=== PATIENT | female | born 1945 | race Hispanic/Latino ===

== ENCOUNTER → 2017-11-17 | Outpatient (CLI) | payer MEDICARE, OTHER ==
[~2017-11-17] MED LIST: ALLO100T PO; ASCO-157 PO; BIOTIN PO; CALC1TAB36 PO; CARV25TA77 PO; CHOL200026 PO; FENO160T16 PO; FISH1CAP50 PO; FOLI1TAB36 PO; HYDR-2132 PO; INSU100V12 SQ; LEVO50TA4 PO; LINA5TAB PO; LOSA100T29 PO; METF500T6 PO; PREG50 PO; PROP15DR28 OU; RIVA10TA PO; TORS5TAB12 PO
== END ==
LOC: RAH 15:58
PROVIDERS: ATTEND Internal Medicine
DX: M43.16 Spondylolisthesis, lumbar region (principal); M47.896 Other spondylosis, lumbar region
CPT/HCPCS: 72100

== ENCOUNTER 2017-12-03 10:21 | Emergency (ER) | payer MEDICARE, OTHER | END 2017-12-03 10:51 | disposition home or self-care (01) | LOC: EDH 10:21 | DX: M25.562 Pain in left knee (principal); K04.7 Periapical abscess without sinus; I10 Essential (primary) hypertension; E11.9 Type 2 diabetes mellitus without complications; Z79.4 Long term (current) use of insulin ==

== ENCOUNTER 2018-07-14 10:30 | Inpatient (IN) | payer MEDICARE ==
[~2018-07-14] VITALS: Ht 154.9 cm; Wt 63.0 kg
[~2018-07-14 10:30] MED LIST changes: -ASCO-157 PO; -BIOTIN PO; -CALC1TAB36 PO; -CHOL200026 PO; -FENO160T16 PO; -FISH1CAP50 PO; -HYDR-2132 PO; -INSU100V12 SQ; -LOSA100T29 PO; +METF-444 PO; -METF500T6 PO; -PREG50 PO; -PROP15DR28 OU; -RIVA10TA PO; -TORS5TAB12 PO
[2018-07-17 11:15] VITALS: BP 177/80
[2018-07-17 11:35] LABS: BASOPHILS % (AUTO) 0.9 % (0.0-5.0); HEMATOCRIT 36.5 % (36-48); LYMPHOCYTES % (AUTO) 28.7 % (21.0-51.0); MEAN CORPUSCULAR HEMOGLOBIN 28.4 pg (27.0-33.0); MEAN CORPUSCULAR HGB CONC 33.9 g/dL (32.0-36.0); MEAN CORPUSCULAR VOLUME 83.8 fL (79-99); MONOCYTES % (AUTO) 6.6 % (3.0-13.0); NEUTROPHILS % (AUTO) 60.8 % (40.0-77.0); PLATELET COUNT (AUTO) 243 K/uL (130-400); RED BLOOD CELL COUNT(AUTO) 4.36 MIL/uL (4.00-5.50); RED CELL DISTRIBUTION WIDTH 14.9 % (11.0-15.5); WHITE BLOOD COUNT (AUTO) 7.6 K/uL (4.8-10.8)
[2018-07-17 11:36] LABS: CREATININE 0.9 mg/dL (0.5-1.5); POTASSIUM 4.7 mmol/L (3.5-5.1)
[2018-07-17] MEDS ORDERED: TRAM-355 PO (12:22)
[2018-07-17] MEDS ORDERED: TORS5TAB12 PO (12:22)
[2018-07-17] MEDS ORDERED: GABA-529 PO (12:22)
[2018-07-17] MEDS ORDERED: VITAMIN D3 PO (12:22)
[2018-07-17] MEDS ORDERED: ASPI-1181 PO (12:22)
[2018-07-17] MEDS ORDERED: INSU100I21 SQ (12:22)
[2018-07-17] MEDS ORDERED: FENO160T16 PO (12:22)
[2018-07-19] VITALS (22 sets, daily range): BP systolic 97–177; BP diastolic 53–82
[2018-07-19] MEDS ORDERED: BACITRACIN 50,000 UNIT VIAL ONE (06:46)
[2018-07-19] MEDS ORDERED: DURAMORPH PF1 MG/ML 10ML AMP IV ONE (06:46)
[2018-07-19] MEDS ORDERED: BUPIVACAINE/EPI/PF 0.25% 30ML VIAL IJ ONE (06:46)
[2018-07-19] MEDS ORDERED: THROMBIN-JMI 20000 UNIT KIT TP ONE (06:46)
[2018-07-19] MEDS ORDERED: SODIUM CHLORIDE 0.9% 1000ML 1,000 ML IV ONE (07:02)
[2018-07-19] MEDS ORDERED: LIDOCAINE PF 2% 5ML ABBOJECT ONE (07:38)
[2018-07-19] MEDS ORDERED: MIDAZOLAM HCL 1 MG/ML 2ML VIAL ONE (07:40)
[2018-07-19] MEDS ORDERED: ONDANSETRON HCL 4 MG/2 ML VIAL ONE (07:40)
[2018-07-19] MEDS ORDERED: PROPOFOL 10 MG/ML 20ML VIAL IV ONE (07:40)
[2018-07-19] MEDS ORDERED: DEXAMETHASONE SOD PHOSPHATE 10MG/ML 1ML VIAL ONE (07:40)
[2018-07-19] MEDS ORDERED: ROCURONIUM 10MG/1ML SYR 10 MG/ML ML ONE (07:40)
[2018-07-19] MEDS ORDERED: NEOSTIGMINE 5MG/5ML SYR IV ONE (07:40)
[2018-07-19] MEDS ORDERED: FENTANYL CITRATE PF 50 MCG/1 ML 2ML VIAL ONE ×2 (07:41→11:37)
[2018-07-19] MEDS ORDERED: EPHEDRINE SULFATE 50 MG/ML AMPULE ONE (07:44)
[2018-07-19] MEDS ORDERED: GLYCOPYRROLATE 1 MG/5 ML SYRINGE ONE (07:45)
[2018-07-19] MEDS: CEFAZOLIN SODIUM 1 GM VIAL IVP SCH ×4 (08:00→23:55)
[2018-07-19] MEDS ORDERED: HYDROCODONE/ACETAMINOPHEN 5/325 MG TAB PO PRN (11:45)
[2018-07-19] MEDS ORDERED: MORPHINE SULFATE 2 MG/ML 1ML SYG IVP PRN (11:45)
[2018-07-19] MEDS ORDERED: SODIUM CHLORIDE 0.9% 10 ML VIAL IVP PRN (11:45)
[2018-07-19] MEDS ORDERED: PROMETHAZINE HCL 25 MG/ML 1ML AMPULE IM PRN (11:45)
[2018-07-19] MEDS ORDERED: LACTATED RINGERS 1000ML 1,000 ML IV SCH (11:45)
[2018-07-19] MEDS ORDERED: MORPHINE SULFATE 2 MG/ML 1ML SYG ONE (12:06)
[2018-07-19] MEDS ORDERED: TRAMADOL /APAP 37.5MG/325MG TAB PO PRN (13:00)
[2018-07-19] MEDS: DEXAMETHASONE SOD PHOSPHATE 4 MG/ML 1ML VIAL IVP SCH ×3 (13:03→23:54)
[2018-07-19] MEDS ORDERED: GLUCAGON 1MG KIT 1 MG ML IM PRN (13:45)
[2018-07-19] MEDS ORDERED: DEXTROSE 50%-WATER 50 ML DISP.SYRIN IV PRN (13:45)
[2018-07-19] MEDS: TORSEMIDE 20 MG TAB PO SCH (17:28)
[2018-07-19] MEDS: METFORMIN HCL 500 MG TABLET PO SCH (17:28)
[2018-07-19] MEDS: INSULIN GLARGINE 100 UNITS/ML 10 ML VIAL SQ SCH (17:34)
[2018-07-19] MEDS: INSULIN HUMULIN R 100 UNIT/ML 3ML SQ SCH ×2 (17:35→21:00)
[2018-07-19] MEDS: CARVEDILOL 25 MG TABLET PO SCH (20:23)
[2018-07-19] MEDS ORDERED: **HM** FENOFIBRATE 160MG PO SCH (21:00)
[2018-07-19] MEDS ORDERED: ASPIRIN 81 MG EC TAB PO SCH (21:00)
[2018-07-19] MEDS ORDERED: GABAPENTIN 100 MG CAPSULE PO SCH (21:00)
[2018-07-20 04:24] VITALS: BP 132/57
[2018-07-20] MEDS: DEXAMETHASONE SOD PHOSPHATE 4 MG/ML 1ML VIAL IVP SCH (05:42)
[2018-07-20] MEDS: INSULIN HUMULIN R 100 UNIT/ML 3ML SQ SCH ×2 (06:09→11:45)
[2018-07-20 07:56] VITALS: BP 155/74
[2018-07-20] MEDS: INSULIN GLARGINE 100 UNITS/ML 10 ML VIAL SQ SCH (08:41)
[2018-07-20 08:51] VITALS: BP 155/74
[2018-07-20] MEDS: TORSEMIDE 20 MG TAB PO SCH (08:51)
[2018-07-20] MEDS: CARVEDILOL 25 MG TABLET PO SCH (08:51)
[2018-07-20] MEDS: METFORMIN HCL 500 MG TABLET PO SCH (08:52)
[2018-07-20] MEDS ORDERED: LEVOTHYROXINE 50 MCG TABLET PO SCH (09:00)
[2018-07-20] MEDS ORDERED: LINAGLIPTIN 5 MG TABLET PO SCH (09:00)
[2018-07-20] MEDS ORDERED: **HM** VIT D3 25MCG PO SCH (09:00)
[2018-07-20] MEDS ORDERED: ALLOPURINOL 100 MG TABLET PO SCH (09:00)
[2018-07-20] MEDS ORDERED: FOLIC ACID/VITAMIN B COMP W-C 1 MG CAPSULE PO SCH (09:00)
== END 2018-07-20 11:42 | disposition home or self-care (01) | DRG 517 ==
LOC: EDSTATUS 10:30 → DAHIP 07-19 05:57 → 4AH 07-19 12:45
PROVIDERS: ADMIT Neurological Surgery; ATTEND Neurological Surgery
PROC: 01NB0ZZ Release Lumbar Nerve, Open Approach (ICD-10-PCS; principal; 2018-07-19 08:49)
PROC: 4A11X4G Monitoring of Peripheral Nervous Electrical Activity, Intraoperative, External Approach (ICD-10-PCS; 2018-07-19 08:49)
PROC: BR191ZZ Fluoroscopy of Lumbar Spine using Low Osmolar Contrast (ICD-10-PCS; 2018-07-19 08:49)
DX: M48.061 Spinal stenosis, lumbar region without neurogenic claudication (principal); E11.9 Type 2 diabetes mellitus without complications; I10 Essential (primary) hypertension; M21.372 Foot drop, left foot; M19.90 Unspecified osteoarthritis, unspecified site
CPT/HCPCS: 36415; 72020; 80048; 82948; 85025; A4218; A4344; J0690; J1100; J1815; J2001; J2250; J2274; J2405; J2704; J2710; J3010; J3490; J7030; J7120

== ENCOUNTER 2018-09-13 05:34 | Day surgery (SDC) | payer MEDICARE ==
[~2018-09-13] VITALS: Ht 157.5 cm; Wt 63.9 kg
[2018-09-13] VITALS (8 sets, daily range): BP systolic 103–185; BP diastolic 51–71
[~2018-09-13 05:34] MED LIST changes: +ASPI-1181 PO; +FENO160T16 PO; +GABA-529 PO; +INSU100I21 SQ; +TORS5TAB12 PO; +TRAM-355 PO; +VITAMIN D3 PO
[2018-09-13] MEDS ORDERED: SODIUM CHLORIDE 0.9% 1000ML 1,000 ML IV ONE (06:23)
[2018-09-13] MEDS ORDERED: AMLO5TAB7 PO (06:29)
[2018-09-13] MEDS ORDERED: DOCU100T PO (06:29)
[2018-09-13] MEDS ORDERED: LIDOCAINE HCL-MPF 2% 5ML VIAL ONE (06:33)
[2018-09-13] MEDS ORDERED: PROPOFOL 10 MG/ML 20ML VIAL IV ONE (06:33)
== END 2018-09-13 07:35 | disposition home or self-care (01) ==
LOC: DAH 05:34
PROVIDERS: ATTEND Internal Medicine
DX: K63.5 Polyp of colon (principal); D64.9 Anemia, unspecified; K57.30 Diverticulosis of large intestine without perforation or abscess without bleeding; K64.0 First degree hemorrhoids; Z86.010 Personal history of colon polyps; I10 Essential (primary) hypertension; E78.5 Hyperlipidemia, unspecified; E11.9 Type 2 diabetes mellitus without complications; Z79.4 Long term (current) use of insulin; E03.9 Hypothyroidism, unspecified; Z98.890 Other specified postprocedural states; Z90.49 Acquired absence of other specified parts of digestive tract; Z98.49 Cataract extraction status, unspecified eye; Z79.84 Long term (current) use of oral hypoglycemic drugs
CPT/HCPCS: 45380; 82948; 88305; 93005; A4606; J2704; J3490; J7030

== ENCOUNTER 2019-03-11 11:35 | Emergency (ER) | payer MEDICARE ==
[~2019-03-11 11:35] MED LIST changes: +AMLO5TAB9 PO; +DOCU100T PO; -GABA-529 PO; -LINA5TAB PO; -TRAM-355 PO; -VITAMIN D3 PO
== END 2019-03-11 12:19 | disposition home or self-care (01) ==
LOC: EDH 11:35
DX: M17.11 Unilateral primary osteoarthritis, right knee (principal); E11.9 Type 2 diabetes mellitus without complications; I10 Essential (primary) hypertension; E78.5 Hyperlipidemia, unspecified; Z79.4 Long term (current) use of insulin; Z90.49 Acquired absence of other specified parts of digestive tract; Z90.710 Acquired absence of both cervix and uterus; Z98.890 Other specified postprocedural states

== ENCOUNTER 2019-07-13 08:00 | Inpatient (IN) | payer MEDICARE ==
[~2019-07-13] VITALS: Ht 157.5 cm; Wt 67.1 kg
[~2019-07-13 08:00] MED LIST changes: -ASPI-1181 PO; -DOCU100T PO
[2019-07-31 14:45] VITALS: BP 147/65
[2019-07-31 15:35] LABS: BASOPHILS % (AUTO) 0.6 % (0.0-5.0); EOSINOPHILS % (AUTO) 2.6 % (0.0-8.0); HEMATOCRIT 39.3 % (36-48); LYMPHOCYTES % (AUTO) 23.9 % (21.0-51.0); MEAN CORPUSCULAR HEMOGLOBIN 28.4 pg (27.0-33.0); MEAN CORPUSCULAR HGB CONC 33.4 g/dL (32.0-36.0); MEAN CORPUSCULAR VOLUME 84.8 fL (79-99); MONOCYTES % (AUTO) 7.1 % (3.0-13.0); NEUTROPHILS % (AUTO) 65.8 % (40.0-77.0); NUCLEATED RED BLOOD CELLS 0.1 % (0.0-0.19); PLATELET COUNT (AUTO) 216 K/uL (130-400); RED BLOOD CELL COUNT(AUTO) 4.63 MIL/uL (4.00-5.50); RED CELL DISTRIBUTION WIDTH 14.2 % (11.0-15.5); WHITE BLOOD COUNT (AUTO) 8.1 K/uL (4.8-10.8)
[2019-07-31 15:44] LABS: POTASSIUM 4.5 mmol/L (3.5-5.1)
[2019-07-31 15:45] LABS: INR 1.02 (0.85-1.15); PROTHROMBIN TIME 10.7 SEC (9.6-11.6)
[2019-07-31] MEDS ORDERED: LINA5TAB PO (16:56)
[2019-08-01] VITALS (18 sets, daily range): BP systolic 123–155; BP diastolic 54–78
[2019-08-01] MEDS: CEFAZOLIN SODIUM 1 GM VIAL IVP SCH ×3 (10:30→23:44)
[2019-08-01 10:37] LABS: APPEARANCE,URINE Clear (CLEAR); BILIRUBIN,URINE Negative (NEGATIVE); COLOR,URINE Yellow (YELLOW); GLUCOSE, URINE (UA) 500 mg/dL (NEGATIVE); KETONES,URINE Negative (NEGATIVE); LEUKOCYTE ESTERASE ,URINE Small (NEGATIVE); NITRATE,URINE Negative (NEGATIVE); OCCULT BLOOD,URINE Negative (NEGATIVE); PH,URINE 6.5 (5.0-8.0); PROTEIN,URINE Negative (NEGATIVE); UROBILINOGEN,URINE 0.2 mg/dL (0.2-1.0)
[2019-08-01 10:51] LABS: BACTERIA,URINE Rare /HPF (None Seen); RBC,URINE 0-1 /HPF (0-1); SQUAMOUS EPITHELIAL CELL,UR Rare /HPF (0-2)
[2019-08-01] MEDS ORDERED: SODIUM CHLORIDE 0.9% 1000ML 1,000 ML IV ONE (10:51)
[2019-08-01] MEDS ORDERED: ACETAMINOPHEN EXTRA STRENGTH 500 MG TABLET ONE (11:15)
[2019-08-01] MEDS ORDERED: KETOROLAC TROMETHAMINE 15MG/ML ONE (11:15)
[2019-08-01] MEDS ORDERED: CELECOXIB 200 MG CAP ONE (11:15)
[2019-08-01] MEDS ORDERED: OXYCODONE HCL 10 MG TAB.SR.12H PO ONE (11:16)
--- NOTE | 2019-08-01 11:32 | NUR ---
POTENTIAL FOR INFECTION: SHAVED RIGHT LEG / KNEE PER GLORIA TAM, FOLLOWED BY WIPING WITH CORBY: 2% CHLORHEXIDINE GLUCONATE CLOTH PATIENTS PRE-OP SKIN PREP.
[2019-08-01] MEDS ORDERED: PROPOFOL 10 MG/ML 20ML VIAL IV ONE (11:36)
[2019-08-01] MEDS ORDERED: SUCCINYLCHOLINE 200MG/10ML SYR ONE (11:36)
[2019-08-01] MEDS ORDERED: DEXAMETHASONE SOD PHOSPHATE 10MG/ML 1ML VIAL ONE ×2 (11:36→11:43)
[2019-08-01] MEDS ORDERED: LIDOCAINE PF 2% 5ML ABBOJECT ONE (11:36)
[2019-08-01] MEDS ORDERED: ONDANSETRON HCL 4 MG/2 ML VIAL ONE (11:37)
[2019-08-01] MEDS ORDERED: MIDAZOLAM HCL 1 MG/ML 2ML VIAL ONE (11:37)
[2019-08-01] MEDS ORDERED: ROCURONIUM 10MG/1ML SYR 10 MG/ML ML ONE ×2 (11:37→16:29)
[2019-08-01] MEDS ORDERED: GLYCOPYRROLATE 1 MG/5 ML SYRINGE ONE (11:37)
[2019-08-01] MEDS ORDERED: NEOSTIGMINE 5MG/5ML SYR IV ONE (11:37)
[2019-08-01] MEDS ORDERED: FENTANYL CITRATE PF 50 MCG/1 ML 2ML VIAL ONE (11:41)
[2019-08-01] MEDS ORDERED: ROPIVACAINE 0.5% 5MG/ML 30ML IJ ONE (11:45)
[2019-08-01] MEDS ORDERED: CEFAZOLIN SODIUM 1 GM VIAL ONE (12:59)
[2019-08-01] MEDS ORDERED: TRANEXAMIC ACID 1000MG/10ML IV ONE ×2 (12:59)
[2019-08-01] MEDS ORDERED: EPHEDRINE SULFATE 50 MG/ML AMPULE ONE (17:23)
[2019-08-01] MEDS: SODIUM CHLORIDE 0.9% 1000ML 1,000 ML IV SCH (18:07)
[2019-08-01] MEDS ORDERED: POTASSIUM CHLORIDE 10% ELIXIR 20 MEQ/15 ML UDCUP PO PRN (18:15)
[2019-08-01] MEDS ORDERED: POTASSIUM CHLORIDE 20 MEQ ERTAB PO PRN (18:15)
[2019-08-01] MEDS ORDERED: TRAMADOL HCL 50 MG TABLET PO PRN (18:15)
[2019-08-01] MEDS ORDERED: LIDOCAINE HCL-MPF 1% 2ML VIAL IV PRN (18:15)
[2019-08-01] MEDS: ACETAMINOPHEN EXTRA STRENGTH 500 MG TABLET PO SCH (18:15)
[2019-08-01] MEDS ORDERED: DiphenhydrAMINE HCL 50 MG/ML VIAL IVP PRN (18:15)
[2019-08-01] MEDS ORDERED: FERROUS FUMARATE 324 MG TABLET PO PRN (18:15)
[2019-08-01] MEDS ORDERED: POTASSIUM CHLORIDE 20MEQ/100ML 100 ML IV PRN (18:15)
[2019-08-01] MEDS ORDERED: TEMAZEPAM 15 MG CAPSULE PO PRN (18:15)
[2019-08-01] MEDS ORDERED: CALCIUM CARBONATE 500 MG TABLET PO PRN (18:15)
[2019-08-01] MEDS ORDERED: OXYCODONE HCL 5 MG TAB PO PRN (18:15)
[2019-08-01] MEDS ORDERED: ONDANSETRON HCL 4 MG/2 ML VIAL IVP PRN (18:15)
[2019-08-01] MEDS ORDERED: METOCLOPRAMIDE 10 MG/2 ML VIAL ONE (19:18)
[2019-08-01] MEDS: **HM**(Fenofibrate 160 MG PO SCH (21:00)
[2019-08-01] MEDS: CELECOXIB 200 MG CAP PO SCH (22:12)
[2019-08-01] MEDS: ASPIRIN 81MG TAB.CHEW PO SCH (22:12)
[2019-08-01] MEDS: PREGABALIN 25 MG CAP PO SCH (22:13)
[2019-08-01] MEDS: CARVEDILOL 25 MG TABLET PO SCH (22:13)
[2019-08-01] MEDS: INSULIN HUMULIN R 100 UNIT/ML 3ML SQ SCH (22:25)
[2019-08-02] VITALS (7 sets, daily range): BP systolic 114–154; BP diastolic 49–72
[2019-08-02] MEDS: SODIUM CHLORIDE 0.9% 1000ML 1,000 ML IV SCH ×2 (03:24→14:07)
[2019-08-02] MEDS: ACETAMINOPHEN EXTRA STRENGTH 500 MG TABLET PO SCH ×3 (03:25→17:54)
[2019-08-02 05:12] LABS: HEMATOCRIT 31.6 % (36-48); MEAN CORPUSCULAR HGB CONC 34.5 g/dL (32.0-36.0); MEAN CORPUSCULAR VOLUME 84.2 fL (79-99); NUCLEATED RED BLOOD CELLS 0.1 % (0.0-0.19); PLATELET COUNT (AUTO) 175 K/uL (130-400); RED BLOOD CELL COUNT(AUTO) 3.76 MIL/uL (4.00-5.50); RED CELL DISTRIBUTION WIDTH 14.2 % (11.0-15.5); WHITE BLOOD COUNT (AUTO) 9.9 K/uL (4.8-10.8)
[2019-08-02 05:35] LABS: CREATININE 0.8 mg/dL (0.5-1.5); POTASSIUM 4.9 mmol/L (3.5-5.1)
[2019-08-02] MEDS: CEFAZOLIN SODIUM 1 GM VIAL IVP SCH (06:14)
[2019-08-02] MEDS: LEVOTHYROXINE 50 MCG TABLET PO SCH (06:15)
[2019-08-02] MEDS: INSULIN HUMULIN R 100 UNIT/ML 3ML SQ SCH ×4 (06:30→21:46)
[2019-08-02] MEDS ORDERED: TORSEMIDE 5 MG PO SCH (08:00)
[2019-08-02] MEDS: PREGABALIN 25 MG CAP PO SCH ×2 (08:45→21:38)
[2019-08-02] MEDS: LINAGLIPTIN 5 MG TABLET PO SCH (08:45)
[2019-08-02] MEDS: FAMOTIDINE 20MG TAB 20 MG TAB PO SCH (08:45)
[2019-08-02] MEDS: ALLOPURINOL 100 MG TABLET PO SCH (08:46)
[2019-08-02] MEDS: AMLODIPINE BESYLATE 5 MG TAB PO SCH (08:46)
[2019-08-02] MEDS: CELECOXIB 200 MG CAP PO SCH ×2 (08:46→21:38)
[2019-08-02] MEDS: CARVEDILOL 25 MG TABLET PO SCH ×2 (08:47→21:37)
[2019-08-02] MEDS: METFORMIN HCL 500 MG TABLET PO SCH ×2 (08:48→17:54)
[2019-08-02] MEDS: ASPIRIN 81MG TAB.CHEW PO SCH ×2 (08:48→21:37)
[2019-08-02] MEDS: POLYETHYLENE GLYCOL 3350 17 GM POWD.PACK PO SCH (08:49)
[2019-08-02] MEDS: INSULIN GLARGINE 100 UNITS/ML 10 ML VIAL SQ SCH ×2 (08:52→17:56)
[2019-08-02] MEDS: TORSEMIDE 20 MG TAB PO SCH ×2 (08:59→17:54)
[2019-08-02] MEDS: BIOT PO SCH (09:00)
[2019-08-02] MEDS: ZINC PO SCH (09:00)
[2019-08-02] MEDS: [UNRECOGNIZED DRUG - OTHER] PO SCH (09:00)
[2019-08-02] MEDS: VIT B CPLX PO SCH (09:00)
[2019-08-02] MEDS: ZN OX PO SCH (09:00)
--- NOTE | 2019-08-02 11:53 | NUR ---
DR. FAIRBANKS AWARE OF PT'S INABILITY TO VOID BLADDER SCAN CLOSE TO 700 CC BLADDER IS DISTENDED , HOWEVER DOES NOT COMPLAIN OF PAIN NOR TENDERNESS. DR. FAIRBANKS AWARE STATED TO WAIT 2-3 HRS BEFORE TYLER CATHETER AND CALL FIELD ENGINEER , SINCE PATIENT STILL VERY NUMB TO HER RIGHT LOWER LEG
--- NOTE | 2019-08-02 13:30 | NUR ---
PT VOIDED 450 CC OF CLEAR URINE
--- NOTE | 2019-08-02 16:55 | NUR ---
INITIAL, NEW ORDER FOR SNF/ REFERRAL/ ACCEPTANED MET W PATIENT AT BEDSIDE EARLIER THIS AFTERNOON PT IS AAOX3, LIVES W SPOUSE JARED, HAS DME, HOME IS SAFE AND ACCESSIBLE WAS PREVIOUSLY INDP OF ADLS, USED A CANE SOMETIMES AND IS S/P TKA #2. STATES GOT NEW INFO ABOUT HER 'S HEALTH THIS AM; NOW WANTS TO GO TO A SNF TO NOT BE A BURDEN OR WORRY TO HIM. WAS AT [facility]ST TIME AND WANTS TO GO BACK. JULIA SIGNED. CALL TO DR. FAIRBANKS, REFERRAL REC'D AND SENT, EVAL COMPLETED AND PT ACCEPTED, CHART TAGGED, PRIMARY RN AWARE Addendum: 08/02/19 at 2158 by SAM QUEZADA RN Amended: Links added.
[2019-08-02] MEDS: OXYCODONE HCL 5 MG TAB PO PRN (18:52)
[2019-08-02] MEDS: **HM**(Fenofibrate 160 MG PO SCH (21:00)
[2019-08-02] MEDS: KETOROLAC TROMETHAMINE 15MG/ML IV PRN (21:38)
[2019-08-03] VITALS (7 sets, daily range): BP systolic 116–149; BP diastolic 54–68
[2019-08-03] MEDS: ACETAMINOPHEN EXTRA STRENGTH 500 MG TABLET PO SCH ×3 (01:18→18:37)
[2019-08-03] MEDS: LEVOTHYROXINE 50 MCG TABLET PO SCH (05:35)
[2019-08-03] MEDS: OXYCODONE HCL 5 MG TAB PO PRN ×3 (05:38→20:18)
[2019-08-03] MEDS: INSULIN HUMULIN R 100 UNIT/ML 3ML SQ SCH ×4 (05:40→20:14)
[2019-08-03] MEDS: INSULIN GLARGINE 100 UNITS/ML 10 ML VIAL SQ SCH ×2 (08:00→16:23)
[2019-08-03] MEDS ORDERED: ASPI-1005 PO (08:38)
[2019-08-03] MEDS ORDERED: HYDR-4457 PO (08:38)
[2019-08-03] MEDS: ZN OX PO SCH (09:00)
[2019-08-03] MEDS: BIOT PO SCH (09:00)
[2019-08-03] MEDS: AMLODIPINE BESYLATE 5 MG TAB PO SCH (09:00)
[2019-08-03] MEDS: ZINC PO SCH (09:00)
[2019-08-03] MEDS: VIT B CPLX PO SCH (09:00)
[2019-08-03] MEDS: CARVEDILOL 25 MG TABLET PO SCH ×2 (09:00→19:55)
[2019-08-03] MEDS: [UNRECOGNIZED DRUG - OTHER] PO SCH (09:00)
[2019-08-03] MEDS: METFORMIN HCL 500 MG TABLET PO SCH ×2 (09:31→16:20)
[2019-08-03] MEDS: KETOROLAC TROMETHAMINE 15MG/ML IV PRN (09:31)
[2019-08-03] MEDS: ALLOPURINOL 100 MG TABLET PO SCH (09:32)
[2019-08-03] MEDS: FAMOTIDINE 20MG TAB 20 MG TAB PO SCH (09:33)
[2019-08-03] MEDS: TORSEMIDE 20 MG TAB PO SCH ×2 (09:33→16:20)
[2019-08-03] MEDS: ASPIRIN 81MG TAB.CHEW PO SCH ×2 (09:33→19:55)
[2019-08-03] MEDS: LINAGLIPTIN 5 MG TABLET PO SCH (09:33)
[2019-08-03] MEDS: PREGABALIN 25 MG CAP PO SCH ×2 (09:33→19:55)
[2019-08-03] MEDS: CELECOXIB 200 MG CAP PO SCH ×2 (09:33→19:54)
[2019-08-03] MEDS: POLYETHYLENE GLYCOL 3350 17 GM POWD.PACK PO SCH (09:34)
--- NOTE | 2019-08-03 10:00 | NUR ---
cm note spoke to natan with [facility] and states pt needs accepted for tuesday, as long as pt has been here 3 midnights. updated primary nurse.
[2019-08-03] MEDS: **HM**(Fenofibrate 160 MG PO SCH (19:56)
[2019-08-04] MEDS: ACETAMINOPHEN EXTRA STRENGTH 500 MG TABLET PO SCH ×2 (02:53→11:16)
[2019-08-04 03:30] VITALS: BP 139/65
[2019-08-04] MEDS: LEVOTHYROXINE 50 MCG TABLET PO SCH (04:57)
[2019-08-04] MEDS: INSULIN HUMULIN R 100 UNIT/ML 3ML SQ SCH ×2 (06:15→11:44)
[2019-08-04 07:53] VITALS: BP 128/57
[2019-08-04] MEDS: INSULIN GLARGINE 100 UNITS/ML 10 ML VIAL SQ SCH (08:00)
[2019-08-04] MEDS: OXYCODONE HCL 5 MG TAB PO PRN (08:09)
[2019-08-04] MEDS: [UNRECOGNIZED DRUG - OTHER] PO SCH (09:00)
[2019-08-04] MEDS: CARVEDILOL 25 MG TABLET PO SCH (09:00)
[2019-08-04] MEDS: ZN OX PO SCH (09:00)
[2019-08-04] MEDS: AMLODIPINE BESYLATE 5 MG TAB PO SCH (09:00)
[2019-08-04] MEDS: BIOT PO SCH (09:00)
[2019-08-04] MEDS: ZINC PO SCH (09:00)
[2019-08-04] MEDS: VIT B CPLX PO SCH (09:00)
[2019-08-04] MEDS: FAMOTIDINE 20MG TAB 20 MG TAB PO SCH (11:16)
[2019-08-04] MEDS: CELECOXIB 200 MG CAP PO SCH (11:16)
[2019-08-04] MEDS: LINAGLIPTIN 5 MG TABLET PO SCH (11:16)
[2019-08-04] MEDS: METFORMIN HCL 500 MG TABLET PO SCH (11:16)
[2019-08-04] MEDS: ASPIRIN 81MG TAB.CHEW PO SCH (11:17)
[2019-08-04] MEDS: ALLOPURINOL 100 MG TABLET PO SCH (11:17)
[2019-08-04] MEDS: PREGABALIN 25 MG CAP PO SCH (11:17)
[2019-08-04] MEDS: TORSEMIDE 20 MG TAB PO SCH (11:17)
[2019-08-04] MEDS: POLYETHYLENE GLYCOL 3350 17 GM POWD.PACK PO SCH (11:18)
[2019-08-04] MEDS: KETOROLAC TROMETHAMINE 15MG/ML IV PRN (11:25)
[2019-08-04 11:38] VITALS: BP 122/55
--- NOTE | 2019-08-04 12:25 | NUR ---
REPORT TO [facility] NURSE REPORT GIVEN TO SANTI HERNANDEZ OF [facility] [phone]. NURSE INFORMED PATIENT IS READY TO BE PICKED UP BY [facility]. Addendum: 08/04/19 at 2100 by AZALIA SMITH RN RN FAXED MEDICATION RECONCILIATION AND DR. FAIRBANKS DISCHARGE ORDERS TO [facility] [phone]. ORIGINAL RX (ASA, NORCO) PLACED IN PATIENT CHART COPY FOLDER. INFORMED SANTI HERNANDEZ AT TIME OF DISCHARGE NO LONGER ORDERED BY DR. FAIRBANKS. RIGHT KNEE DRESSING CHANGED PERFORMED PRIOR TO DISCHARGES. RIGHT KNEE INCISION APPROXIMATED AND ASYMPTOMATIC, CLEANSED WITH BETADINE, COVERED WITH GAUZE, AND SECURED WITH MEDIPORE TAPE. REMOVED 20G IV FROM LEFT FA, CATHETER TIP INTACT. Addendum: 08/04/19 at 2101 by AZALIA SMITH RN RN Amended: Links added.
[2019-08-04] MEDS ORDERED: BISACODYL 10 MG SUPP.RECT RC PRN (18:15)
== END 2019-08-04 13:00 | DRG 470 ==
LOC: DAHIP 08-01 09:56 → 4AH 08-01 19:58
PROVIDERS: ADMIT Orthopaedic Surgery; ATTEND Orthopaedic Surgery
PROC: 3E0T3BZ Introduction of Anesthetic Agent into Peripheral Nerves and Plexi, Percutaneous Approach (ICD-10-PCS; 2019-08-01)
PROC: 0SRC0J9 Replacement of Right Knee Joint with Synthetic Substitute, Cemented, Open Approach (ICD-10-PCS; principal; 2019-08-01 15:30)
DX: M17.11 Unilateral primary osteoarthritis, right knee (principal); E78.00 Pure hypercholesterolemia, unspecified; E11.9 Type 2 diabetes mellitus without complications; M81.0 Age-related osteoporosis without current pathological fracture; E03.9 Hypothyroidism, unspecified; I11.9 Hypertensive heart disease without heart failure; R33.9 Retention of urine, unspecified; G89.29 Other chronic pain; Z96.652 Presence of left artificial knee joint; Z90.49 Acquired absence of other specified parts of digestive tract; Z90.710 Acquired absence of both cervix and uterus; Z79.899 Other long term (current) drug therapy; Z99.89 Dependence on other enabling machines and devices
CPT/HCPCS: 36415; 80048; 81001; 82948; 85025; 85027; 85610; 87641; 88304; 88311; 96374; 97039; A4344; G0378; J0330; J0690; J1100; J1815; J1885; J2001; J2250; J2405; J2704; J2710; J2765; J2795; J3010; J3490; J7030; J7120

== ENCOUNTER → 2019-10-24 | Outpatient (CLI) | payer MEDICARE ==
[~2019-10-24] MED LIST changes: +ASPI-1005 PO; +HYDR-4457 PO; +LINA5TAB PO
== END | disposition home or self-care (01) ==
LOC: RAH 10:17
PROVIDERS: ATTEND Family Medicine
DX: Z12.31 Encounter for screening mammogram for malignant neoplasm of breast (principal)
CPT/HCPCS: 77067

== ENCOUNTER 2019-12-02 23:39 | Emergency (ER) | payer MEDICARE ==
[2019-12-03] MEDS ORDERED: MORPHINE SULFATE 2 MG/ML 1ML SYG ONE (00:23)
[2019-12-03 00:25] LABS: BASOPHILS % (AUTO) 0.6 % (0.0-5.0); EOSINOPHILS % (AUTO) 4.2 % (0.0-8.0); HEMATOCRIT 34.4 % (36-48); LYMPHOCYTES % (AUTO) 19.1 % (21.0-51.0); MEAN CORPUSCULAR HEMOGLOBIN 25.8 pg (27.0-33.0); MEAN CORPUSCULAR HGB CONC 31.7 g/dL (32.0-36.0); MEAN CORPUSCULAR VOLUME 81.5 fL (79-99); MONOCYTES % (AUTO) 10.5 % (3.0-13.0); NEUTROPHILS % (AUTO) 65.2 % (40.0-77.0); PLATELET COUNT (AUTO) 254 K/uL (130-400); RED BLOOD CELL COUNT(AUTO) 4.22 MIL/uL (4.00-5.50); RED CELL DISTRIBUTION WIDTH 15.5 % (11.0-15.5); WHITE BLOOD COUNT (AUTO) 7.2 K/uL (4.8-10.8)
[2019-12-03 00:30] LABS: POTASSIUM 4.7 mmol/L (3.5-5.1)
== END 2019-12-03 01:46 | disposition home or self-care (01) ==
LOC: EDH 23:39
DX: M25.571 Pain in right ankle and joints of right foot (principal); R60.0 Localized edema; I10 Essential (primary) hypertension; E78.5 Hyperlipidemia, unspecified; E11.9 Type 2 diabetes mellitus without complications; Z79.4 Long term (current) use of insulin; Z87.891 Personal history of nicotine dependence
CPT/HCPCS: 36415; 80048; 85025; 93971; 96372

== ENCOUNTER → 2020-01-07 | Outpatient (CLI) | payer MEDICARE, OTHER | END | disposition home or self-care (01) | LOC: SHCH 12:40 | PROVIDERS: ATTEND Internal Medicine Cardiovascular Disease | DX: I51.7 Cardiomegaly (principal); R60.0 Localized edema | CPT/HCPCS: 93306; 93356 ==

== ENCOUNTER → 2020-01-22 | Outpatient (CLI) | payer MEDICARE | END | disposition home or self-care (01) | LOC: SHCH 10:58 | PROVIDERS: ATTEND Internal Medicine Cardiovascular Disease | DX: I87.2 Venous insufficiency (chronic) (peripheral) (principal); K21.9 Gastro-esophageal reflux disease without esophagitis | CPT/HCPCS: 93970 ==

== ENCOUNTER 2020-06-29 09:26 | Inpatient (IN) | payer MEDICARE ==
[~2020-06-29] VITALS: Ht 157.5 cm; Wt 66.1 kg
[2020-06-29] MEDS ORDERED: DEXTROSE 50%-WATER 50 ML DISP.SYRIN IV ONE ×3 (09:36→13:40)
[2020-06-29 10:22] LABS: BASOPHILS % (AUTO) 0.3 % (0.0-5.0); EOSINOPHILS % (AUTO) 0.7 % (0.0-8.0); HEMATOCRIT 37.3 % (36-48); LYMPHOCYTES % (AUTO) 19.6 % (21.0-51.0); MEAN CORPUSCULAR HEMOGLOBIN 27.5 pg (27.0-33.0); MEAN CORPUSCULAR HGB CONC 31.9 g/dL (32.0-36.0); MEAN CORPUSCULAR VOLUME 86.3 fL (79-99); MONOCYTES % (AUTO) 4.3 % (3.0-13.0); NEUTROPHILS % (AUTO) 74.8 % (40.0-77.0); PLATELET COUNT (AUTO) 254 K/uL (130-400); RED BLOOD CELL COUNT(AUTO) 4.32 MIL/uL (4.00-5.50); RED CELL DISTRIBUTION WIDTH 14.6 % (11.0-15.5); WHITE BLOOD COUNT (AUTO) 5.8 K/uL (4.8-10.8)
[2020-06-29 10:23] LABS: APPEARANCE,URINE Clear (CLEAR); BILIRUBIN,URINE Negative (NEGATIVE); COLOR,URINE Yellow (YELLOW); GLUCOSE, URINE (UA) Negative (NEGATIVE); KETONES,URINE Negative (NEGATIVE); LEUKOCYTE ESTERASE ,URINE Negative (NEGATIVE); NITRATE,URINE Negative (NEGATIVE); OCCULT BLOOD,URINE Negative (NEGATIVE); PROTEIN,URINE Negative (NEGATIVE); UROBILINOGEN,URINE 0.2 mg/dL (0.2-1.0)
[2020-06-29 10:35] LABS: CREATININE 1.5 mg/dL (0.5-1.5); POTASSIUM 4.7 mmol/L (3.5-5.1)
[2020-06-29 10:36] LABS: INR 1.06 (0.85-1.15); PARTIAL THROMBOPLASTIN TIME 30.3 SEC (26.3-35.5); PROTHROMBIN TIME 11.4 SEC (9.6-11.6)
[2020-06-29 10:40] LABS: ALBUMIN 3.8 g/dL (3.5-5.0); BILIRUBIN,TOTAL 0.3 mg/dL (0.2-1.0); TOTAL PROTEIN, SERUM 7.4 g/dL (6.0-8.3)
[2020-06-29] MEDS ORDERED: ZOSYN 3.375GM+NS 50ML 50 ML IV ONE (10:58)
[2020-06-29] MEDS ORDERED: DOPAMINE 800MG/D5 250ML 250 ML IV ONE (11:01)
[2020-06-29] MEDS ORDERED: LIDOCAINE HCL-MPF 1% 2ML VIAL IV PRN (12:30)
[2020-06-29] MEDS ORDERED: HYDRALAZINE HCL 20 MG/ML VIAL IV PRN (12:30)
[2020-06-29] MEDS ORDERED: POTASSIUM CHLORIDE 20MEQ/100ML 100 ML IV PRN (12:30)
[2020-06-29 12:38] LABS: HEMOGLOBIN A1C 7.6 % (4.0-6.0)
[2020-06-29] MEDS ORDERED: COMPOUND IV MISC 1 EACH IVSOLN MISC PRN (12:45)
[2020-06-29] MEDS ORDERED: DEXTROSE 5%-WATER 1,000 ML IV ONE (13:41)
[2020-06-29] MEDS ORDERED: DEXTROSE 5%-LACTATED RINGERS 1,000 ML IV SCH (14:00)
[2020-06-29] MEDS ORDERED: ACYCLOVIR SODIUM 500 MG VIAL IV SCH (14:00)
[2020-06-29] MEDS ORDERED: DEXTROSE 5 % AND 0.9 % NACL 1,000 ML IV ONE (14:56)
[2020-06-29 15:34] LABS: THYROID STIMULATING HORMONE 1.09 uIU/mL (0.36-3.74)
[2020-06-29] MEDS ORDERED: NOREPINEPHRINE 4MG/NS 250ML 250 ML IV SCH (15:45)
[2020-06-30 05:15] LABS: BASOPHILS % (AUTO) 0.3 % (0.0-5.0); EOSINOPHILS % (AUTO) 1.4 % (0.0-8.0); HEMATOCRIT 31.9 % (36-48); LYMPHOCYTES % (AUTO) 17.9 % (21.0-51.0); MEAN CORPUSCULAR HEMOGLOBIN 27.8 pg (27.0-33.0); MEAN CORPUSCULAR HGB CONC 32.3 g/dL (32.0-36.0); MEAN CORPUSCULAR VOLUME 86.2 fL (79-99); MONOCYTES % (AUTO) 7.3 % (3.0-13.0); NEUTROPHILS % (AUTO) 72.8 % (40.0-77.0); PLATELET COUNT (AUTO) 236 K/uL (130-400); RED CELL DISTRIBUTION WIDTH 14.8 % (11.0-15.5); WHITE BLOOD COUNT (AUTO) 7.3 K/uL (4.8-10.8)
[2020-06-30 05:24] LABS: POTASSIUM 5.1 mmol/L (3.5-5.1)
[2020-06-30] MEDS: ENOXAPARIN SODIUM 40 MG/0.4 ML SYRINGE SQ SCH (09:00)
[2020-06-30] MEDS ORDERED: ENOXAPARIN SODIUM 40 MG/0.4 ML SYRINGE SQ ONE (09:26)
[2020-06-30] MEDS: INSULIN HUMULIN R 100 UNIT/ML 3ML SQ SCH ×3 (11:30→20:37)
[2020-06-30] MEDS: SODIUM CHLORIDE 0.9% IV SCH ×2 (14:00→22:50)
[2020-06-30] MEDS: ACYCLOVIR SODIUM IV SCH ×2 (14:00→22:50)
[2020-06-30 15:00] VITALS: BP 168/75
--- NOTE | 2020-06-30 15:28 | NUR ---
RECEIVED CALL FROM PT.'S DAUGHTER, ETHAN PUGH , PER HERSELF; UPDATED ON PT.'S STATUS ( REQUESTED) AND QUESTIONS ANSWERED, VERBALIZED UNDERSTANDING.
--- NOTE | 2020-06-30 16:54 | NUR ---
cm note spoke to pt's spouse, pt resides with spouse, ambulates with cane and walker mostly, but has w/c, able to do own personal care.adls. but spouse states he has a family member that will be staying with them after pt gets out of the hospital to help them temporarily while she recovers. dc plan is back home. states no dc needs. Addendum: 06/30/20 at 1706 by JITENDRA MCGREGOR CM Amended: Links added.
--- NOTE | 2020-06-30 17:00 | NUR ---
RECEIVED CALL FROM PT.'S SON, JARED PUGH III, INQUIRED RE:PT.'S STATUS, QUESTIONS ANSWERED AND VERBALIZED UNDERSTANDING. JARED LEXY III STATES ETHAN PUGH IS PT.'S [id number].
--- NOTE | 2020-06-30 17:09 | NUR ---
RECEIVED CALL FROM JARED PUGH PT.'S SPOUSE. QUESTIONS ANSWERED AND VERBALIZED UNDERSTANDING.
[2020-06-30] MEDS ORDERED: VANCOMYCIN PROTOCOL PER PHARMACY IV SCH (17:45)
[2020-06-30] MEDS: CEFTRIAXONE SODIUM 1 GM IVP SCH (18:38)
[2020-06-30] MEDS ORDERED: COMPOUND IV REFRIGERATED 1 EACH IVSOLN MISC PRN (18:45)
[2020-06-30 20:00] VITALS: BP 155/79
[2020-06-30] MEDS ORDERED: VANCOMYCIN HCL 1 GM VIAL IV SCH (20:00)
[2020-06-30] MEDS: VANCOMYCIN 1GM+NS 250ML IV SCH (21:37)
[2020-06-30 23:34] VITALS: BP 148/74
[2020-07-01 03:56] VITALS: BP 151/79
[2020-07-01] MEDS: SODIUM CHLORIDE 0.9% IV SCH ×3 (04:45→20:32)
[2020-07-01] MEDS: ACYCLOVIR SODIUM IV SCH ×3 (04:45→20:32)
[2020-07-01] MEDS: INSULIN HUMULIN R 100 UNIT/ML 3ML SQ SCH ×4 (05:57→20:33)
[2020-07-01] MEDS: CEFTRIAXONE SODIUM 1 GM IVP SCH (08:14)
[2020-07-01] MEDS: ENOXAPARIN SODIUM 40 MG/0.4 ML SYRINGE SQ SCH (08:14)
--- NOTE | 2020-07-01 09:00 | NUR ---
DR. ALFONSO HERE , AND SPOKE WITH PT AND FAMILY MEMBER , DAUGHTER IN LAW, REGARDING HER DIABETIC PLAN OF CARE AND MEDICATIONS AND MONITORING APPT. IN HIS OFFICE AFTER DISCHARGE .
[2020-07-01 09:13] VITALS: BP 179/69
--- NOTE | 2020-07-01 09:37 | NUR ---
DR. CASTILLO HERE ,AND REVIEW PLAN OF CARE.,
[2020-07-01] MEDS ORDERED: GADODIAMIDE 10 MMOL/20 ML VIAL IV ONE (10:42)
[2020-07-01 11:30] VITALS: BP 157/83
[2020-07-01 16:00] VITALS: BP 148/83
[2020-07-01] MEDS ORDERED: RENAL DOSE IV SCH (17:45)
[2020-07-01] MEDS: LISINOPRIL 10 MG TABLET PO SCH (19:20)
[2020-07-01 20:50] VITALS: BP 159/93
[2020-07-01] MEDS: VANCOMYCIN 1GM+NS 250ML IV SCH (21:30)
[2020-07-02] VITALS (9 sets, daily range): BP systolic 149–186; BP diastolic 70–87
[2020-07-02 05:32] LABS: BASOPHILS % (AUTO) 0.7 % (0.0-5.0); HEMATOCRIT 35.5 % (36-48); LYMPHOCYTES % (AUTO) 32.8 % (21.0-51.0); MEAN CORPUSCULAR HEMOGLOBIN 27.4 pg (27.0-33.0); MEAN CORPUSCULAR HGB CONC 32.1 g/dL (32.0-36.0); MEAN CORPUSCULAR VOLUME 85.3 fL (79-99); MONOCYTES % (AUTO) 9.7 % (3.0-13.0); NEUTROPHILS % (AUTO) 53.6 % (40.0-77.0); PLATELET COUNT (AUTO) 266 K/uL (130-400); RED BLOOD CELL COUNT(AUTO) 4.16 MIL/uL (4.00-5.50); RED CELL DISTRIBUTION WIDTH 14.6 % (11.0-15.5); WHITE BLOOD COUNT (AUTO) 4.3 K/uL (4.8-10.8)
[2020-07-02 05:53] LABS: ALBUMIN 3.2 g/dL (3.5-5.0); BILIRUBIN,TOTAL 0.4 mg/dL (0.2-1.0); CREATININE 0.8 mg/dL (0.5-1.5); POTASSIUM 4.8 mmol/L (3.5-5.1); TOTAL PROTEIN, SERUM 6.8 g/dL (6.0-8.3)
[2020-07-02] MEDS: INSULIN HUMULIN R 100 UNIT/ML 3ML SQ SCH ×4 (06:18→21:00)
[2020-07-02] MEDS ORDERED: HYDRALAZINE HCL 20 MG/ML VIAL IV PRN (08:45)
[2020-07-02] MEDS: LISINOPRIL 10 MG TABLET PO SCH (09:00)
[2020-07-02] MEDS: ENOXAPARIN SODIUM 40 MG/0.4 ML SYRINGE SQ SCH (09:30)
[2020-07-02] MEDS: ACYCLOVIR SODIUM IV SCH ×2 (09:31→21:00)
[2020-07-02] MEDS: SODIUM CHLORIDE 0.9% IV SCH ×2 (09:31→21:00)
--- NOTE | 2020-07-02 15:54 | NUR ---
RD NOTIFICATION Pt admitted with shock, sepsis, hypoglycemia. Pt tolerating 75gm CC diet order with no report of GI distress. Pt reports improved appetite with good PO intake at 75-100%. Pt with no nutrition concerns at this time. Pt declines need for nutrition education. RD to continue to monitor. Please notify as additional nutrition concerns arise. Thank you. Addendum: 07/02/20 at [address] RD Amended: Links added.
[2020-07-02] MEDS: METFORMIN HCL 500 MG TABLET PO SCH (17:45)
[2020-07-02] MEDS: VANCOMYCIN 1GM+NS 250ML IV SCH (21:30)
[2020-07-03 03:48] VITALS: BP 153/77
[2020-07-03 04:12] LABS: BASOPHILS % (AUTO) 0.7 % (0.0-5.0); EOSINOPHILS % (AUTO) 3.2 % (0.0-8.0); HEMATOCRIT 33.9 % (36-48); LYMPHOCYTES % (AUTO) 30.7 % (21.0-51.0); MEAN CORPUSCULAR HEMOGLOBIN 27.6 pg (27.0-33.0); MEAN CORPUSCULAR HGB CONC 32.4 g/dL (32.0-36.0); MONOCYTES % (AUTO) 9.8 % (3.0-13.0); NEUTROPHILS % (AUTO) 55.3 % (40.0-77.0); PLATELET COUNT (AUTO) 265 K/uL (130-400); RED BLOOD CELL COUNT(AUTO) 3.99 MIL/uL (4.00-5.50); RED CELL DISTRIBUTION WIDTH 14.4 % (11.0-15.5)
[2020-07-03 04:38] LABS: BILIRUBIN,TOTAL 0.4 mg/dL (0.2-1.0); CREATININE 0.8 mg/dL (0.5-1.5); POTASSIUM 4.9 mmol/L (3.5-5.1); TOTAL PROTEIN, SERUM 6.4 g/dL (6.0-8.3)
[2020-07-03] MEDS: INSULIN HUMULIN R 100 UNIT/ML 3ML SQ SCH ×2 (05:47→11:51)
[2020-07-03 08:00] VITALS: BP 179/79
[2020-07-03] MEDS ORDERED: INSULIN GLARGINE 100 UNITS/ML 10 ML VIAL SQ SCH (09:00)
--- NOTE | 2020-07-03 09:44 | NUR ---
erik burnett for the consult. will wait for her call back Addendum: 07/03/20 at 0945 by HERNESTO ZENDEJAS RN RN disregard the notes. wrong patient
[2020-07-03] MEDS: METFORMIN HCL 500 MG TABLET PO SCH (10:13)
[2020-07-03] MEDS: ENOXAPARIN SODIUM 40 MG/0.4 ML SYRINGE SQ SCH (10:13)
[2020-07-03] MEDS: LISINOPRIL 10 MG TABLET PO SCH (10:14)
[2020-07-03] MEDS: SODIUM CHLORIDE 0.9% IV SCH (10:15)
[2020-07-03] MEDS: ACYCLOVIR SODIUM IV SCH (10:15)
[2020-07-03 11:35] VITALS: BP 155/69
[2020-07-03] MEDS ORDERED: LINA5TAB PO (13:21)
[2020-07-03] MEDS ORDERED: ACYC800T PO (13:21)
[2020-07-03] MEDS ORDERED: METF-444 PO (13:21)
--- NOTE | 2020-07-03 14:00 | NUR ---
SPOKE AT LENGTH TO PATIENT'S DAUGHTER IN LAW AND SON VIA PHONE AND UPDATED FACE SHEET WITH PHONE NUMBER STATES THEY LIVES IN [facility], BUT ARE PLANNING TO COME TO TAKE PATIENT & SPOUSE HOME WITH THEM, DISCONTENT WITH PATIENT'S PRIMARY MD, STATES PATIENT LIKELY TO RESUME HOME DOSE OF INSULIN WHEN SHE GETS OME, ASKED PLEASE MAKE SURE THAT [facility] KNOWS HER INSULIN DOSE HAS CHANGED. DISCUSSED WITH , STATES WILL GO HOME ON 'NO INSULIN', RAW SILK GRADER WILL RE INFORCE. Addendum: 07/04/20 at 0905 by SAM QUEZADA RN CM Amended: Links added.
--- NOTE | 2020-07-03 16:57 | NUR ---
patient reported that she was able to void at this time.
== END 2020-07-03 18:00 | disposition home or self-care (01) | DRG 637 ==
LOC: EDH 09:26 → EDHIP 11:39 → 4CH 06-30 15:06
PROVIDERS: ADMIT Internal Medicine; ATTEND Internal Medicine
DX: E11.649 Type 2 diabetes mellitus with hypoglycemia without coma (principal); G93.41 Metabolic encephalopathy; R78.81 Bacteremia; N18.4 Chronic kidney disease, stage 4 (severe); E11.40 Type 2 diabetes mellitus with diabetic neuropathy, unspecified; E11.319 Type 2 diabetes mellitus with unspecified diabetic retinopathy without macular edema; F03.90 Unspecified dementia, unspecified severity, without behavioral disturbance, psychotic disturbance, mood disturbance, and anxiety; I12.9 Hypertensive chronic kidney disease with stage 1 through stage 4 chronic kidney disease, or unspecified chronic kidney disease; R29.810 Facial weakness; B02.9 Zoster without complications; E78.5 Hyperlipidemia, unspecified; E11.22 Type 2 diabetes mellitus with diabetic chronic kidney disease; Z20.828 Contact with and (suspected) exposure to other viral communicable diseases; G89.29 Other chronic pain; T68.XXXA Hypothermia, initial encounter; E03.9 Hypothyroidism, unspecified; D64.9 Anemia, unspecified; B95.7 Other staphylococcus as the cause of diseases classified elsewhere; B96.89 Other specified bacterial agents as the cause of diseases classified elsewhere; F43.22 Adjustment disorder with anxiety; G93.89 Other specified disorders of brain; S00.81XA Abrasion of other part of head, initial encounter; E66.9 Obesity, unspecified; Y93.89 Activity, other specified; Y92.89 Other specified places as the place of occurrence of the external cause; Y99.8 Other external cause status; Z68.26 Body mass index [BMI] 26.0-26.9, adult; Z79.4 Long term (current) use of insulin; Z86.73 Personal history of transient ischemic attack (TIA), and cerebral infarction without residual deficits; Z82.5 Family history of asthma and other chronic lower respiratory diseases; Z83.3 Family history of diabetes mellitus; Z82.0 Family history of epilepsy and other diseases of the nervous system; Z82.3 Family history of stroke; Z82.49 Family history of ischemic heart disease and other diseases of the circulatory system
CPT/HCPCS: 36415; 70450; 70553; 71045; 74176; 80048; 80053; 81003; 82533; 82550; 82948; 83036; 83605; 84145; 84436; 84439; 84443; 84480; 84484; 85025; 85610; 85730; 87040; 87077; 87186; 87426; 93005; 93880; 99291; A9579; G0378; J0133; J0360; J0696; J1265; J1650; J1815; J2543; J3370; J7042; J7070; U0003

== ENCOUNTER → 2020-11-17 | Outpatient (CLI) | payer MEDICARE ==
[~2020-11-17] VITALS: Ht 157.5 cm; Wt 59.9 kg
[~2020-11-17] MED LIST changes: +ACYC800T PO; +AMLO-257 PO; -AMLO5TAB9 PO; -HYDR-4457 PO; -INSU100I21 SQ; +REGADENOSON 0.4 MG/5 ML PF SYG IVP SCH
== END | disposition home or self-care (01) ==
LOC: SHCH 08:49
PROVIDERS: ATTEND Internal Medicine Cardiovascular Disease
DX: R06.09 Other forms of dyspnea (principal); R94.31 Abnormal electrocardiogram [ECG] [EKG]
CPT/HCPCS: 78452; 93017; 96374; A9500 ×2; J2785

== ENCOUNTER 2020-12-18 05:54 | Day surgery (SDC) | payer MEDICARE ==
[2020-12-16 11:15] VITALS: BP 126/69
[2020-12-16 11:51] LABS: APPEARANCE,URINE SL CLOUDY (CLEAR); BILIRUBIN,URINE NEGATIVE (NEGATIVE); COLOR,URINE YELLOW (YELLOW); GLUCOSE, URINE (UA) >=1000 mg/dL (NEGATIVE); KETONES,URINE NEGATIVE (NEGATIVE); LEUKOCYTE ESTERASE ,URINE MODERATE (NEGATIVE); NITRATE,URINE NEGATIVE (NEGATIVE); OCCULT BLOOD,URINE TRACE-INTACT (NEGATIVE); PROTEIN,URINE NEGATIVE (NEGATIVE); UROBILINOGEN,URINE 0.2 mg/dL (0.2-1.0)
[2020-12-16 11:55] LABS: BASOPHILS % (AUTO) 0.6 % (0.0-5.0); EOSINOPHILS % (AUTO) 2.1 % (0.0-8.0); HEMATOCRIT 40.8 % (36-48); LYMPHOCYTES % (AUTO) 22.9 % (21.0-51.0); MEAN CORPUSCULAR HEMOGLOBIN 26.7 pg (27.0-33.0); MEAN CORPUSCULAR HGB CONC 30.6 g/dL (32.0-36.0); MONOCYTES % (AUTO) 7.4 % (3.0-13.0); NEUTROPHILS % (AUTO) 66.4 % (40.0-77.0); PLATELET COUNT (AUTO) 269 K/uL (130-400); RED BLOOD CELL COUNT(AUTO) 4.69 MIL/uL (4.00-5.50); RED CELL DISTRIBUTION WIDTH 14.4 % (11.0-15.5)
[2020-12-16 12:02] LABS: CREATININE 0.9 mg/dL (0.5-1.5); POTASSIUM 4.3 mmol/L (3.5-5.1)
[2020-12-16 12:09] LABS: BACTERIA,URINE Many /HPF (None Seen); RBC,URINE 0-1 /HPF (0-1); WBC,URINE TNTC /HPF (0-1)
[2020-12-16 12:15] LABS: INR 1.05 (0.85-1.15); PROTHROMBIN TIME 11.4 SEC (9.6-11.6)
[2020-12-16 12:17] LABS: PARTIAL THROMBOPLASTIN TIME 29.1 SEC (26.3-35.5)
[~2020-12-18] VITALS: Ht 157.5 cm; Wt 59.0 kg
[2020-12-18] VITALS (11 sets, daily range): BP systolic 99–137; BP diastolic 45–61
[~2020-12-18 05:54] MED LIST changes: -ACYC800T PO; +AEC81 PO; -AMLO-257 PO; -ASPI-1005 PO; +CEFTRIAXONE SODIUM 1 GM IVP SCH; +CYAN250010 PO; +DONE5TAB33 PO; +EMPA25TA PO; -FOLI1TAB36 PO; +INSU100I26 SQ; -LINA5TAB PO; -METF-444 PO; +METF-446 PO; +MULT-1203 PO; +PIOG45TA64 PO; -REGADENOSON 0.4 MG/5 ML PF SYG IVP SCH; +SERT-439 PO; +SODIUM CHLORIDE 0.9% 500ML 500 ML IV SCH; +VITAD50000 PO
[2020-12-18] MEDS ORDERED: CEFTRIAXONE SODIUM 1 GM ONE (06:59)
[2020-12-18] MEDS ORDERED: SODIUM CHLORIDE 0.9% 1000ML 1,000 ML IV ONE (07:00)
[2020-12-18] MEDS ORDERED: NITROGLYCERIN 2 MG/VIAL VIAL IV ONE (07:10)
[2020-12-18] MEDS ORDERED: HEPARIN SODIUM 1000UNIT/ML 10ML VIAL ONE (07:11)
[2020-12-18] MEDS ORDERED: IOHEXOL-350 50ML VIAL IV ONE (07:11)
[2020-12-18] MEDS ORDERED: IOHEXOL 350 MG/ML 100ML INFUS..BTL IV ONE (07:11)
[2020-12-18] MEDS ORDERED: MIDAZOLAM HCL 1 MG/ML 2ML VIAL ONE (07:11)
[2020-12-18] MEDS ORDERED: FENTANYL CITRATE PF 50 MCG/1 ML 2ML VIAL ONE (07:11)
[2020-12-18] MEDS ORDERED: BIVALIRUDIN 250 MG/VIAL IV ONE (07:11)
[2020-12-18] MEDS ORDERED: LIDOCAINE HCL 2% 20ML ONE (07:12)
[2020-12-18] MEDS ORDERED: SODIUM CHLORIDE 0.9% 1000ML 1,000 ML IV SCH (08:00)
[2020-12-18] MEDS ORDERED: GLUCAGON 1MG KIT 1 MG ML IM PRN (08:00)
[2020-12-18] MEDS ORDERED: DEXTROSE 50%-WATER 50 ML DISP.SYRIN IV PRN (08:00)
[2020-12-18] MEDS ORDERED: INSULIN HUMULIN R 100 UNIT/ML 3ML SQ SCH (11:30)
== END 2020-12-18 13:10 | disposition home or self-care (01) ==
LOC: DAH 05:54
PROVIDERS: ATTEND Internal Medicine Cardiovascular Disease
DX: I25.119 Atherosclerotic heart disease of native coronary artery with unspecified angina pectoris (principal); I11.0 Hypertensive heart disease with heart failure; I50.32 Chronic diastolic (congestive) heart failure; I48.0 Paroxysmal atrial fibrillation; I34.0 Nonrheumatic mitral (valve) insufficiency; I87.2 Venous insufficiency (chronic) (peripheral); E11.51 Type 2 diabetes mellitus with diabetic peripheral angiopathy without gangrene; I47.2 Ventricular tachycardia; M19.90 Unspecified osteoarthritis, unspecified site; E78.2 Mixed hyperlipidemia; E78.00 Pure hypercholesterolemia, unspecified; E03.9 Hypothyroidism, unspecified; M81.0 Age-related osteoporosis without current pathological fracture; Z79.890 Hormone replacement therapy; Z79.82 Long term (current) use of aspirin; Z79.899 Other long term (current) drug therapy; Z79.84 Long term (current) use of oral hypoglycemic drugs; Z90.49 Acquired absence of other specified parts of digestive tract; Z79.01 Long term (current) use of anticoagulants; Z90.710 Acquired absence of both cervix and uterus; Z98.890 Other specified postprocedural states
CPT/HCPCS: 36415; 71045; 80048; 81001; 82948 ×2; 85025; 85610; 85730; 87077; 87088; 87186; 93005; 93458; A4215; A4216; A4221; A4222; A4223 ×3; A4606; A4663; C1760; C1894 ×2; J0696; J1644; J3490 ×2; J7030; Q9965; Q9967 ×2; J0583; J2250; J3010

== ENCOUNTER → 2020-12-24 | Outpatient (CLI) | payer MEDICARE ==
[~2020-12-24] MED LIST changes: -CEFTRIAXONE SODIUM 1 GM IVP SCH; -SODIUM CHLORIDE 0.9% 500ML 500 ML IV SCH
== END | disposition home or self-care (01) ==
LOC: RAH 14:22
PROVIDERS: ATTEND Family Medicine
DX: Z12.31 Encounter for screening mammogram for malignant neoplasm of breast (principal); N64.89 Other specified disorders of breast
CPT/HCPCS: 77067